=== PATIENT | female | born 1950 | race Hispanic/Latino ===

== ENCOUNTER → 2023-03-06 | Emergency (ER) | payer OTHER ==
[~2023-03-06] MED LIST: NA CHLORIDE 0.9% 1,000 ML ONE; ONDANSETRON 4 MG/2 ML VIAL ONE
[2023-03-06 17:59] LABS: Absolute Lymphocytes (CBC) 1.7 K/uL (0.7-4.9); Hematocrit 44.2 % (36.0-45.0); Lymphocytes % 13.9 % (15.3-44.8); MCV 89.3 fL (80-100); MPV 7.3 fL (7.6-11.3); Platelets 310 thou/uL (152-406); RBC Red Blood Cell Count 4.95 M/uL (3.86-4.86)
[2023-03-06 18:15] LABS: Albumin 4.1 g/dL (3.4-5.0); Bilirubin Total 1.8 mg/dL (0.2-1.0); Potassium 3.4 mEq/L (3.5-5.1); Protein, Total 8.3 g/dL (6.4-8.2)
--- NOTE | 2023-03-06 18:48 | RAD REPORT ---
EXAM DESCRIPTION: CTAbdomen Pelvis W Contrast - 03/06/2023 6:34 pm CLINICAL HISTORY: vomiting;Abd pain COMPARISON: CT ABD PELVIS W CONTRAST dated 03/08/2015 TECHNIQUE: CT of the abdomen and pelvis was performed. All CT scans are performed using dose optimization technique as appropriate and may include automated exposure control or mA/KV adjustment according to patient size. FINDINGS: Lower chest: No acute abnormality. Liver: Low-density lesion in the hepatic dome is unchanged since 2014 and benign. There is a second b enign-appearing low-density lesion along the gallbladder fossa that is likely benign. Other sub 5 mm low-density lesions present in the right and left hepatic lobe that are highly likely be benign but t oo small to characterize. Biliary: No biliary ductal dilatation. Stomach: No significant focal abnormality. Duodenum: No significant focal abnormality. Pancreas: No significant abnormality. Spleen: No significant abnormality. Adrenal: No suspicious lesions. Kidney/ureter: No hydronephrosis. No renal calculi. Retroperitoneum: No retroperitoneal adenopathy. Vascular: No aneurysm. Bowel: Partial colectomy. Moderate stool in the colon. No bowel obstruction.. Appendectomy. Peritoneum: No ascites or free air. Bladder: Grossly unremarkable. Reproductive: No adnexal masses. Bones: No acute fracture. L4-5 fusion. Multilevel degenerative changes are present in the spine. Other: n/a IMPRESSION: No acute intra-abdominal or pelvic finding. Appendectomy. No urinary tract calculi.
[2023-03-06 20:17] LABS: SARS-COV-2 RT PCR NEGATIVE (NEGATIVE)
--- NOTE | 2023-03-06 21:08 | ER ---
Nurse's Notes [facility] Name: Danielle Crain Age: 72 yrs Sex: Female : 1950 Arrival Date: 03/06/2023 Time: 16:47 Bed 6 Private MD: Diagnosis: Nausea with vomiting, unspecified Presentation: 03/06 17:12 Chief complaint: Patient states: "I THINK THAT I OVERDOSED ON MY OZYMPIC." PT STATES cm10 THAT SHE HAS NOT HAD THE SHOT SINCE DECEMBER AND GAVE HERSELF THE SHOT YESTERDAY. PT STATES THAT SHE HAS BEEN VOMITING SINCE YESTERDAY. PT STATES THAT SHE ADMINISTERED 2MG. Coronavirus screen: Vaccine status: Patient reports being unvaccinated. Client denies travel out of the [place] in the last 14 days. Ebola Screen: Patient denies travel to an Ebola-affected area in the 21 days before illness onset. No symptoms or risks identified at this time. Initial Sepsis Screen: Does the patient meet any 2 criteria? No. Patient's initial sepsis screen is negative. Does the patient have a suspected source of infection? No. Patient's initial sepsis screen is negative. Risk Assessment: Do you want to hurt yourself or someone else? Patient reports no desire to harm self or others. Onset of symptoms was March 06, 2023. 17:12 Method Of Arrival: Ambulatory cm10 17:12 Acuity: INGRIS 3 cm10 Historical: - Allergies: 17:15 Sulfa (Sulfonamide Antibiotics); cm10 - PMHx: 17:20 COLON CANCER; Arthritis; cm10 - Immunization history:: Adult Immunizations unknown. - Social history:: Smoking status: Patient denies any tobacco usage or history of. Screenin:57 [facility] ED Fall Risk Assessment (Adult) History of falling in the last 3 months, kc6 including since admission No falls in past 3 months (0 pts) Confusion or Disorientation No (0 pts) Intoxicated or Sedated No (0 pts) Impaired Gait No (0 pts) Mobility Assist Device Used No (0 pt) Altered Elimination No (0 pt) Score/Fall Risk Level 0 - 2 = Low Risk. Abuse screen: Denies threats or abuse. Denies injuries from another. Nutritional screening: No deficits noted. Tuberculosis screening: No symptoms or risk factors identified. Assessment: 17:57 General: Appears in no apparent distress. comfortable, well groomed, well developed, kc6 Behavior is calm, cooperative, appropriate for age, Reports chills for feeling ill for. Pain: Complains of pain in abdomen Quality of pain is described as crampy. Neuro: Level of Consciousness is awake, alert, obeys commands, Oriented to person, place, time, situation, Appropriate for age. Cardiovascular: Capillary refill < 3 seconds. Respiratory: Airway is patent Trachea midline Respiratory effort is even, unlabored, Respiratory pattern is regular, symmetrical. GI: Abdomen is flat, non-distended, Reports diarrhea, nausea, vomiting. : No signs and/or symptoms were reported regarding the genitourinary system. EENT: No signs and/or symptoms were reported regarding the EENT system. Derm: No signs and/or symptoms reported regarding the dermatologic system. Skin is intact, is healthy with good turgor, Skin is pink, warm \\T\\ dry. Musculoskeletal: No signs and/or symptoms reported regarding the musculoskeletal system. Circulation, motion, and sensation intact. Capillary refill < 3 seconds, Range of motion: intact in all extremities. 21:30 Reassessment: Patient appears in no apparent distress at this time. Patient and/or jb4 family updated on plan of care and expected duration. Pain level reassessed. Patient is alert, oriented x 3, equal unlabored respirations, skin warm/dry/pink. Vital Signs: 17:12 Pulse 98; Resp 18; Temp 98.2; Pulse Ox 100% on R/A; Weight 62.14 kg; Height 5 ft. 0 in. cm10 ; Pain 0/10; 17:15 BP 135 / 73; cm10 21:30 BP 113 / 78; Pulse 85; Resp 16; Pulse Ox 100% on R/A; jb4 17:12 Body Mass Index 26.76 (62.14 kg, 152.4 cm) cm10 17:12 Pain Scale: Adult cm10 ED Course: 16:50 Patient arrived in ED. mg5 16:51 Aurelia Alonzo PA-C is PHCP. sb4 16:51 William Zelaya MD is Attending Physician. sb4 17:15 Triage completed. cm10 17:15 Arm band placed on Patient placed in waiting room. cm10 17:39 Wendy Osman, KEVIN is Primary Nurse. kc6 17:56 Inserted saline lock: 20 gauge in right antecubital area, using aseptic technique. kc6 Blood collected. Patient maintains SpO2 saturation greater than 95% on room air. 17:57 Patient has correct armband on for positive identification. Bed in low position. Call kc6 light in reach. Side rails up X 1. Adult w/ patient. Client placed on continuous cardiac and pulse oximetry monitoring. NIBP monitoring applied. 18:35 CT Abd/Pelvis - IV Contrast Only In Process Unspecified. EDMS 19:36 COVID-19/FLU A+B Sent. vc1 21:30 No provider procedures requiring assistance completed. IV discontinued, intact, jb4 bleeding controlled, No redness/swelling at site. Pressure dressing applied. Administered Medications: 17:55 Drug: NS 0.9% IV 1000 ml IV at 1 bolus Per protocol; 1000 mL bolus Route: IV; Rate: 1 kc6 bolus; Site: right antecubital; 17:56 Drug: Ondansetron IVP 4 mg IVP once; over 2 minutes Route: IVP; Site: right antecubital;kc6 18:57 Drug: NS 0.9% IV 1000 ml IV at 1 bolus Per protocol; 1000 mL bolus Route: IV; Rate: 1 kc6 bolus; Site: right antecubital; Medication: 21:30 VIS not applicable for this client. jb4 Outcome: 21:07 Discharge ordered by . sb4 21:30 Discharged to home ambulatory, with family, jb4 21:30 Condition: stable 21:30 Discharge instructions given to patient, Instructed on discharge instructions, follow up and referral plans. medication usage, Demonstrated understanding of instructions, follow-up care, medications, Prescriptions given X 1, 21:31 Patient left the ED. jb4 Signatures: Dispatcher [employer] EDMS Mikie Chavez RN RN jb4 Zina Downing RN RN vc1 Wendy Osman RN RN [email or web address] Aurelia Alonzo PA-C PABrooklynn Andrews RN RN cm10 Sabrina Sidhu mg5 Corrections: (The following items were deleted from the chart) 17:15 17:15 Allergies: No Known Allergies; cm10 cm10 17:20 17:15 PMHx: None; cm10 cm10
--- NOTE | 2023-03-06 21:08 | EDPHYS ---
Physician Documentation [facility] Name: Danielle Crain Age: 72 yrs Sex: Female : 1950 Arrival Date: 03/06/2023 Time: 16:47 Bed 6 Private MD: ED Physician William Zelaya HPI: 03/06 17:22 This 72 yrs old Female presents to ER via Ambulatory with complaints of sb4 Nausea/Vomiting. 17:22 Patient states that she was taking Ozempic 0.5 mg weekly for a few months then could no sb4 longer get the medication. She recently got a new prescription this week and accidentally took 2 mg yesterday. States that she has not had uncontrollable nausea, vomiting, diarrhea since. She denies any abdominal pain, fever. Historical: - Allergies: 17:15 Sulfa (Sulfonamide Antibiotics); cm10 - PMHx: 17:20 COLON CANCER; Arthritis; cm10 - Immunization history:: Adult Immunizations unknown. - Social history:: Smoking status: Patient denies any tobacco usage or history of. ROS: 17:22 Constitutional: Negative for fever, chills, and weight loss, sb4 17:22 Abdomen/GI: Positive for nausea, vomiting, and diarrhea, 17:22 All other systems are negative, Exam: 17:22 Head/Face: Normocephalic, atraumatic. Eyes: Extra-ocular motions intact. Periorbital sb4 areas with no swelling, redness, or edema. ENT: Mucous membranes moist. Cardiovascular: Regular rate and rhythm with a normal S1 and S2. Respiratory: Lungs have equal breath sounds bilaterally, clear to auscultation and percussion. No rales, rhonchi or wheezes noted. No increased work of breathing, no retractions or nasal flaring. Abdomen/GI: Soft, non-tender, no distension. Skin: Warm, dry with normal turgor. Normal color with no rashes, no lesions, and no evidence of cellulitis. MS/ Extremity: Pulses equal, no cyanosis. Neurovascular intact. Full, normal range of motion. Neuro: Awake and alert, GCS 15, oriented to person, place, time, and situation. Motor strength 5/5 in all extremities. Sensory grossly intact. 17:22 Constitutional: The patient appears alert, awake, uncomfortable, Vital Signs: 17:12 Pulse 98; Resp 18; Temp 98.2; Pulse Ox 100% on R/A; Weight 62.14 kg; Height 5 ft. 0 in. cm10 ; Pain 0/10; 17:15 BP 135 / 73; cm10 21:30 BP 113 / 78; Pulse 85; Resp 16; Pulse Ox 100% on R/A; jb4 17:12 Body Mass Index 26.76 (62.14 kg, 152.4 cm) cm10 17:12 Pain Scale: Adult cm10 MDM: 17:10 Patient medically screened. sb4 17:22 Differential diagnosis: medication reaction, gastroenteritis, pancreatitis, electrolyte sb4 abnormality, dehydration, cyclical vomiting syndrome. 21:07 Data reviewed: vital signs, nurses notes, lab test result(s), radiologic studies, and sb4 as a result, I will discharge patient. Historians other than the Patient: Spouse/Significant Other: . Counseling: I had a detailed discussion with the patient and/or guardian regarding the historical points, exam findings, and any diagnostic results supporting the discharge/admit diagnosis, lab results, radiology results, to return to the emergency department if symptoms worsen or persist or if there are any questions or concerns that arise at home. 03/06 17:21 Order name: CBC with Diff; Complete Time: 18:01 sb4 03/06 17:21 Order name: CMP; Complete Time: 18:16 sb4 03/06 17:21 Order name: Lipase; Complete Time: 18:16 sb4 03/06 19:27 Order name: COVID-19/FLU A+B; Complete Time: 20:18 vc1 03/06 18:17 Order name: CT Abd/Pelvis - IV Contrast Only; Complete Time: 18:50 sb4 03/06 17:21 Order name: IV Saline Lock; Complete Time: 17:55 sb4 03/06 17:21 Order name: Labs collected and sent; Complete Time: 17:55 sb4 03/06 19:20 Order name: PO challenge; Complete Time: 19:30 sb4 Administered Medications: 17:55 Drug: NS 0.9% IV 1000 ml IV at 1 bolus Per protocol; 1000 mL bolus Route: IV; Rate: 1 kc6 bolus; Site: right antecubital; 17:56 Drug: Ondansetron IVP 4 mg IVP once; over 2 minutes Route: IVP; Site: right antecubital;kc6 18:57 Drug: NS 0.9% IV 1000 ml IV at 1 bolus Per protocol; 1000 mL bolus Route: IV; Rate: 1 kc6 bolus; Site: right antecubital; Disposition Summary: 03/06/23 21:07 Discharge Ordered Notes: Location: Home sb4 Problem: new sb4 Symptoms: have improved sb4 Condition: Stable sb4 Diagnosis - Nausea with vomiting, unspecified sb4 Followup: sb4 - With: Emergency Department - When: As needed - Reason: Trouble breathing, Worsening of condition Discharge Instructions: - Discharge Summary Sheet sb4 - Nausea and Vomiting, Adult sb4 Forms: - Medication Reconciliation Form sb4 - Thank You Letter sb4 - Antibiotic Education sb4 - Prescription Opioid Use sb4 - Patient Portal Instructions sb4 - Leadership Thank You Letter sb4 Prescriptions: - ondansetron 4 mg Oral Tablet,disintegrating - take 1 tablet ORAL route every 6 to 8 hours as needed for nausea and vomiting; sb4 15 tablet; Refills: 0, Product Selection Permitted Addendum: 03/08/2023 21:14 I was immediately available for consultation during this patient's visit. I did not e c2 personally see the patient or guide the patient's care. . Signatures: Dispatcher [employer] Wendy Monk RN RN kc6 Aurelia Alonzo, PAJakeC PARivera nina4 Brooklynn Singh RN RN cm10 William Zelaya MD MD ec2 Corrections: (The following items were deleted from the chart) 03/06 17:15 17:15 Allergies: No Known Allergies; cm10 cm10 17:20 17:15 PMHx: None; cm10 cm10
[2023-03-07 01:30] VITALS: TEMP 98.2; O2SAT 100
[2023-03-07 01:36] VITALS: BP 113/78
== END ==
LOC: ER 16:47
DX: R11.2 Nausea with vomiting, unspecified (principal); Z11.52 Encounter for screening for COVID-19; Z88.2 Allergy status to sulfonamides; Z85.038 Personal history of other malignant neoplasm of large intestine
CPT/HCPCS: 85025; 36415; 83690; 80053; 0240U; 74177; 96374; 99285; Q9967; J2405; J7030 ×2